=== PATIENT | female | born 1995 | race Caucasian/White ===

== ENCOUNTER 2017-05-02 19:15 | Emergency (ER) | payer OTHER ==
[2017-05-02 19:28] VITALS: RESP 18; TEMP 99
--- NOTE | 2017-05-02 19:42 | ED ---
Female Urogenital HPI - General Chief complaint: Vaginal Bleeding Stated complaint: preg/Vag bleeding Time Seen by Provider: 05/02/17 19:31 Source: patient, RN notes reviewed Mode of arrival: ambulatory Limitations: no limitations - History of Present Illness Initial comments: 21-year-old female presents emergency Department with chief complaint of vaginal bleeding in . Patient states started bleeding today. Patient states that she's had spotting and dark blood noted. Patient states she is very minimal cramping. Patient is A1. Patient states he is scheduled to see Dr. Correia. Patient states she went at [facility] earlier today in which they checked her urine and did a pelvic exam. She states that they told her cervix was closed and there is a few clots. Patient states bleeding is slowing down at this time. She believes her blood type is O+. She has never received from him with her primary care or of her child. Patient denies any nausea vomiting diarrhea constipation. - Related Data Home Medications Medication Instructions Recorded Confirmed Jui-Jfjq-Fmqax Acid 1 cap PO HS 05/02/17 05/02/17 [-U Capsule (formulary)] Allergies Allergy/AdvReac Type Severity Reaction Status Date / Time nickel Allergy Rash/Hives Verified 05/02/17 19:43 Review of Systems ROS Statement: Those systems with pertinent positive or pertinent negative responses have been documented in the HPI. ROS Other: All systems not noted in ROS Statement are negative. Past Medical History Additional Past Medical History / Comment(s): RT KIDNEY STONE. History of Any Multi-Drug Resistant Organisms: None Reported Past Surgical History: Section Additional Past Surgical History / Comment(s): Kidney stone removal Past Anesthesia/Blood Transfusion Reactions: No Reported Reaction Past Psychological History: No Psychological Hx Reported Smoking Status: Former smoker Past Alcohol Use History: None Reported Past Drug Use History: None Reported - Past Family History Mother Family Medical History: No Reported History General Exam Limitations: no limitations General appearance: alert, in no apparent distress Neck exam: Present: normal inspection. Absent: tenderness, meningismus, lymphadenopathy Respiratory exam: Present: normal lung sounds bilaterally. Absent: respiratory distress, wheezes, rales, rhonchi, stridor Cardiovascular Exam: Present: regular rate, normal rhythm, normal heart sounds. Absent: systolic murmur, diastolic murmur, rubs, gallop, clicks GI/Abdominal exam: Present: soft, normal bowel sounds. Absent: distended, tenderness, guarding, rebound, rigid Back exam: Absent: CVA tenderness (R), CVA tenderness (L) Neurological exam: Present: alert, oriented X3, CN II-XII intact Skin exam: Present: warm, dry, intact, normal color. Absent: rash Course Vital Signs 05/02/17 19:24 Temperature 99.0 F Pulse Rate 74 Respiratory 18 Rate Blood Pressure 120/66 O2 Sat by Pulse 99 Oximetry Medical Decision Making - Medical Decision Making 21-year-old female presented emergency department for vaginal bleeding and . Patient's hCG is only 11.8. Patient did take a present test 6 days ago. This most likely is a miscarriage. Patient will follow-up with her OB/ [facility]. Patient's ultrasound does not show any abnormalities. - Lab Data Result diagrams: 05/02/17 19:45 Lab Results 05/02/17 05/02/17 05/02/17 Range/Units 19:45 19:45 19:45 WBC 8.6 (3.8-10.6) k/uL RBC 4.81 (3.80-5.40) m/uL Hgb 15.2 (11.4-16.0) gm/dL Hct 42.3 (34.0-46.0) % MCV 87.8 (80.0-100.0) fL MCH 31.5 (25.0-35.0) pg MCHC 35.9 (31.0-37.0) g/dL RDW 12.7 (11.5-15.5) % Plt Count 206 (150-450) k/uL Neutrophils % 74 % Lymphocytes % 19 % Monocytes % 5 % Eosinophils % 1 % Basophils % 0 % Neutrophils # 6.4 (1.3-7.7) k/uL Lymphocytes # 1.6 (1.0-4.8) k/uL Monocytes # 0.4 (0-1.0) k/uL Eosinophils # 0.1 (0-0.7) k/uL Basophils # 0.0 (0-0.2) k/uL HCG, Quant 11.8 mIU/mL Urine Color Urine Appearance (Clear) Urine RBC (0-5) /hpf Urine WBC (0-5) /hpf Urine Bacteria (None) /hpf Urine Mucus (None) /hpf Blood Type O Positive Blood Type Recheck No 05/02/17 Range/Units 19:45 WBC (3.8-10.6) k/uL RBC (3.80-5.40) m/uL Hgb (11.4-16.0) gm/dL Hct (34.0-46.0) % MCV (80.0-100.0) fL MCH (25.0-35.0) pg MCHC (31.0-37.0) g/dL RDW (11.5-15.5) % Plt Count (150-450) k/uL Neutrophils % % Lymphocytes % % Monocytes % % Eosinophils % % Basophils % % Neutrophils # (1.3-7.7) k/uL Lymphocytes # (1.0-4.8) k/uL Monocytes # (0-1.0) k/uL Eosinophils # (0-0.7) k/uL Basophils # (0-0.2) k/uL HCG, Quant mIU/mL Urine Color Red Urine Appearance Bloody H (Clear) Urine RBC >182 H (0-5) /hpf Urine WBC >182 H (0-5) /hpf Urine Bacteria Occasional H (None) /hpf Urine Mucus Many H (None) /hpf Blood Type Blood Type Recheck Disposition Clinical Impression: Miscarriage Disposition: HOME SELF-CARE Condition: Stable Instructions: Miscarriage (ED) Additional Instructions: Please return to the Emergency Department if symptoms worsen or any other concerns. Referrals: None,Stated [Primary Care Provider] - 1-2 days Time of Disposition: 20:57
[2017-05-02 19:52] LABS: Basophils % (A) 0 %; CH 31.3; CHCM 35.8; Eosinophils # (A) 0.1 k/uL (0-0.7); Eosinophils % (A) 1 %; HCT 42.3 % (34.0-46.0); HDW 2.63; HGB 15.2 gm/dL (11.4-16.0); Luc # (Auto) 0.11; Luc % (Auto) 1; Lymphocytes # (A) 1.6 k/uL (1.0-4.8); Lymphocytes % (A) 19 %; MCH 31.5 pg (25.0-35.0); MCHC 35.9 g/dL (31.0-37.0); MCV 87.8 fL (80.0-100.0); Mean Platelet Volume 8.6; Monocytes # (A) 0.4 k/uL (0-1.0); Monocytes % (A) 5 %; Neutrophils # (A) 6.4 k/uL (1.3-7.7); Neutrophils % (A) 74 %; RBC 4.81 m/uL (3.80-5.40); RDW 12.7 % (11.5-15.5); WBC 8.6 k/uL (3.8-10.6); WBC (Perox) 7.93
[2017-05-02 20:07] LABS: Bacteria,Urine Occasional /hpf; Mucus,Urine Many /hpf; Particle Count 14180; RBC,Urine >182 /hpf (0-5); WBC,Urine >182 /hpf (0-5)
[2017-05-02 20:09] LABS: Appearance,Urine Bloody (Clear)
[2017-05-02 20:10] LABS: UA Billing (MACRO vs. MICRO) MICRO
[2017-05-02 21:17] VITALS: BP 105/59; PULSE 79
--- NOTE | 2017-05-02 21:36 | US ---
EXAMINATION TYPE: US OB <=14 wks transvag DATE OF EXAM: 05/02/2017 COMPARISON: NONE CLINICAL HISTORY: Pain, bleeding. EXAM PERFORMED: Transvaginal (TV) and Transabdominal (TA) EXAM MEASUREMENTS: GESTATIONAL AGE / DATING Physician Established: not yet established Dates by LMP: (6 weeks/0 days) EDC: 12/26/17 Dates by First Scan: 1st scan today Dates by Current Scan for: no dates by today's scan MATERNAL ANATOMY Uterus: 8.8 x 4.4 x 3.6cm Right Ovary: 3.0 x 1.6 x 1.5cm Left Ovary: 2.3 x 1.4 x 1.8cm Post CDS / Adnexa: wnl GESTATION / SURVEY IUP: No IUP seen at this time Date of LMP: 03/21/17 Beta HcG (if available): 11.8 IMPRESSION: Normal uterus and endometrium. No adnexal mass. No evidence of a gestational sac.
== END 2017-05-02 21:17 | disposition home or self-care (01) ==
LOC: EC 19:15
DX: O03.9 Complete or unspecified spontaneous abortion without complication (principal); Z3A.01 Less than 8 weeks gestation of pregnancy; Z91.048 Other nonmedicinal substance allergy status; Z79.899 Other long term (current) drug therapy; Z87.891 Personal history of nicotine dependence
CPT/HCPCS: 36415; 76801; 76817; 81001; 84702; 85025; 86900; 86901; 87086; 99284

== ENCOUNTER 2018-03-22 20:08 | Emergency (ER) | payer OTHER ==
[2018-03-22 20:26] VITALS: RESP 18
--- NOTE | 2018-03-22 21:39 | ED ---
Female Urogenital HPI - General Chief complaint: Vaginal Bleeding Stated complaint: vomiting/vaginal bleeding 8 1/2 wks preg Time Seen by Provider: 03/22/18 21:00 Source: patient Mode of arrival: ambulatory Limitations: no limitations - History of Present Illness Initial comments: 22 years old female presents with vaginal bleeding, spotting she believes she is 8-1/2 weeks last menstrual period was January 21, she has a history of previous miscarriages that she is concerned she is having another miscarriage. She is nauseous no dominant pain or lower back pain she has felt some cramps in her abdomen, last menstrual period was 01/21/2018 review of system is unremarkable otherwise - Related Data Home Medications Medication Instructions Recorded Confirmed [id number] Acid 1 cap PO HS 05/02/17 03/22/18 [-U Capsule (formulary)] Ondansetron [Zofran] 4 mg PO Q8HR PRN 03/22/18 03/22/18 Allergies Allergy/AdvReac Type Severity Reaction Status Date / Time nickel Allergy Rash/Hives Verified 03/22/18 21:09 Review of Systems ROS Statement: Those systems with pertinent positive or pertinent negative responses have been documented in the HPI. ROS Other: All systems not noted in ROS Statement are negative. Past Medical History Additional Past Medical History / Comment(s): RT KIDNEY STONE. History of Any Multi-Drug Resistant Organisms: None Reported Past Surgical History: Section Additional Past Surgical History / Comment(s): Kidney stone removal Past Anesthesia/Blood Transfusion Reactions: No Reported Reaction Past Psychological History: No Psychological Hx Reported Smoking Status: Former smoker Past Alcohol Use History: None Reported Past Drug Use History: None Reported - Past Family History Mother Family Medical History: No Reported History General Exam - General Exam Comments Initial Comments: General: The patient is awake and alert, in no distress, and does not appear acutely ill. Skin: Skin is warm and dry and no rashes or lesions are noted. Eye: Pupils are equal, round and reactive to light, extra-ocular movements are intact; there is normal conjunctiva bilaterally. Ears, nose, mouth and throat: There are moist mucous membranes and no oral lesions. Neck: The neck is supple, there is no tenderness or JVD. Cardiovascular: There is a regular rate and rhythm. No murmur, rub or gallop is appreciated. Respiratory: To auscultation bilateral, no wheezing no rhonchi no distress respiratory saha noticed Gastrointestinal: Soft, non-distended, non-tender abdomen without masses or organomegaly noted. There is no rebound or guarding present. Bowel sounds are unremarkable. Pelvic exam is unremarkable no bleeding noticed at all, no cervical motion tenderness noticed cervix is closed Back: There is no tenderness to palpation in the midline. There is no obvious deformity. Musculoskeletal: Normal ROM, no tenderness, There is no pedal edema. There is no calf tenderness or swelling. No cords were appreciated. Neurological: CN II-XII intact, Cranial nerves III through XII are intact. There are no obvious motor or sensory deficits. Coordination appears grossly intact. Speech is normal. Psychiatric: Cooperative, appropriate mood & affect, normal judgment. Limitations: no limitations Course Vital Signs 03/22/18 20:24 Temperature 98.5 F Pulse Rate 81 Respiratory 18 Rate Blood Pressure 110/78 O2 Sat by Pulse 98 Oximetry Issues disposition will be done as soon as I have beta-hCG quantitative and ultrasound of the pelvis report At report was available, it confirms intrauterine intrauterine live , she be discharged home to follow with her ob doctor Medical Decision Making - Lab Data Result diagrams: 03/22/18 21:15 03/22/18 21:15 Lab Results 03/22/18 03/22/18 03/22/18 Range/Units 21:15 21:15 21:15 WBC 8.0 (3.8-10.6) k/uL RBC 4.44 (3.80-5.40) m/uL Hgb 14.0 (11.4-16.0) gm/dL Hct 40.0 (34.0-46.0) % MCV 90.0 (80.0-100.0) fL MCH 31.6 (25.0-35.0) pg MCHC 35.1 (31.0-37.0) g/dL RDW 13.0 (11.5-15.5) % Plt Count 175 (150-450) k/uL Neutrophils % 77 % Lymphocytes % 17 % Monocytes % 4 % Eosinophils % 0 % Basophils % 0 % Neutrophils # 6.1 (1.3-7.7) k/uL Lymphocytes # 1.3 (1.0-4.8) k/uL Monocytes # 0.3 (0-1.0) k/uL Eosinophils # 0.0 (0-0.7) k/uL Basophils # 0.0 (0-0.2) k/uL Sodium 136 L (137-145) mmol/L Potassium 4.0 (3.5-5.1) mmol/L Chloride 99 (98-107) mmol/L Carbon Dioxide 24 (22-30) mmol/L Anion Gap 13 mmol/L BUN 9 (7-17) mg/dL Creatinine 0.49 L (0.52-1.04) mg/dL Est GFR (CKD-EPI)AfAm >90 (>60 ml/min/1.73 sqM) Est GFR (CKD-EPI)NonAf >90 (>60 ml/min/1.73 sqM) Glucose 77 (74-99) mg/dL Calcium 9.4 (8.4-10.2) mg/dL Total Bilirubin 0.4 (0.2-1.3) mg/dL AST 22 (14-36) U/L ALT 27 (9-52) U/L Alkaline Phosphatase 47 (38-126) U/L Total Protein 7.0 (6.3-8.2) g/dL Albumin 4.4 (3.5-5.0) g/dL Urine Color Yellow Urine Appearance Cloudy H (Clear) Urine pH 6.0 (5.0-8.0) Ur Specific [place] 1.020 (1.001-1.035) Urine Protein Trace H (Negative) Urine Glucose (UA) Negative (Negative) Urine Ketones Negative (Negative) Urine Blood Negative (Negative) Urine Nitrite Negative (Negative) Urine Bilirubin Negative (Negative) Urine Urobilinogen <2.0 (<2.0) mg/dL Ur Leukocyte Esterase Small H (Negative) Urine RBC 1 (0-5) /hpf Urine WBC 4 (0-5) /hpf Ur Squamous Epith Cells 31 H (0-4) /hpf Urine Bacteria Rare H (None) /hpf Urine Mucus Moderate H (None) /hpf Urine HCG, Qual (Not Detectd) 03/22/18 Range/Units 21:15 WBC (3.8-10.6) k/uL RBC (3.80-5.40) m/uL Hgb (11.4-16.0) gm/dL Hct (34.0-46.0) % MCV (80.0-100.0) fL MCH (25.0-35.0) pg MCHC (31.0-37.0) g/dL RDW (11.5-15.5) % Plt Count (150-450) k/uL Neutrophils % % Lymphocytes % % Monocytes % % Eosinophils % % Basophils % % Neutrophils # (1.3-7.7) k/uL Lymphocytes # (1.0-4.8) k/uL Monocytes # (0-1.0) k/uL Eosinophils # (0-0.7) k/uL Basophils # (0-0.2) k/uL Sodium (137-145) mmol/L Potassium (3.5-5.1) mmol/L Chloride (98-107) mmol/L Carbon Dioxide (22-30) mmol/L Anion Gap mmol/L BUN (7-17) mg/dL Creatinine (0.52-1.04) mg/dL Est GFR (CKD-EPI)AfAm (>60 ml/min/1.73 sqM) Est GFR (CKD-EPI)NonAf (>60 ml/min/1.73 sqM) Glucose (74-99) mg/dL Calcium (8.4-10.2) mg/dL Total Bilirubin (0.2-1.3) mg/dL AST (14-36) U/L ALT (9-52) U/L Alkaline Phosphatase (38-126) U/L Total Protein (6.3-8.2) g/dL Albumin (3.5-5.0) g/dL Urine Color Urine Appearance (Clear) Urine pH (5.0-8.0) Ur Specific [place] (1.001-1.035) Urine Protein (Negative) Urine Glucose (UA) (Negative) Urine Ketones (Negative) Urine Blood (Negative) Urine Nitrite (Negative) Urine Bilirubin (Negative) Urine Urobilinogen (<2.0) mg/dL Ur Leukocyte Esterase (Negative) Urine RBC (0-5) /hpf Urine WBC (0-5) /hpf Ur Squamous Epith Cells (0-4) /hpf Urine Bacteria (None) /hpf Urine Mucus (None) /hpf Urine HCG, Qual Detected (Not Detectd) Disposition Clinical Impression: Vaginal bleeding Disposition: HOME SELF-CARE Condition: Fair Instructions: First Trimester Vaginal Bleed (ED) Is patient prescribed a controlled substance at d/c from ED?: No When asked, does pt state using other controlled substances?: No If prescribed controlled substance>3 days was MAPS reviewed?: No If opioid is for acute pain is fill amount 7 days or less?: No If Rx opioid, was Start Talking consent form obtained?: No Referrals: None,Stated [Primary Care Provider] - 1-2 days Dunia Polanco, [REFERRING] - 1-2 days
[2018-03-22 21:42] LABS: Basophils % (A) 0 %; Eosinophils % (A) 0 %; Lymphocytes # (A) 1.3 k/uL (1.0-4.8); Lymphocytes % (A) 17 %; MCH 31.6 pg (25.0-35.0); MCHC 35.1 g/dL (31.0-37.0); Mean Platelet Volume 8.1; Monocytes # (A) 0.3 k/uL (0-1.0); Monocytes % (A) 4 %; Neutrophils # (A) 6.1 k/uL (1.3-7.7); Neutrophils % (A) 77 %; Platelet Count 175 k/uL (150-450); RBC 4.44 m/uL (3.80-5.40)
[2018-03-22 21:54] LABS: Appearance,Urine Cloudy (Clear); Bacteria,Urine Rare /hpf; Bilirubin,Urine Negative (Negative); Blood,Urine Negative (Negative); Color,Urine Yellow; Glucose,Urine (UA) Negative (Negative); Ketones,Urine Negative (Negative); Leukocyte Esterase,Urine Small (Negative); Mucus,Urine Moderate /hpf; Nitrite,Urine Negative (Negative); Protein,Urine Trace (Negative); RBC,Urine 1 /hpf (0-5); Squamous Epithelial Cell,Urine 31 /hpf (0-4); Urobilinogen,Urine <2.0 mg/dL (<2.0); WBC,Urine 4 /hpf (0-5)
[2018-03-22 21:56] LABS: ALT 27 U/L (9-52); AST 22 U/L (14-36); Albumin 4.4 g/dL (3.5-5.0); Alkaline Phosphatase 47 U/L (38-126); Anion Gap 13 mmol/L; Blood Urea Nitrogen 9 mg/dL (7-17); Calcium 9.4 mg/dL (8.4-10.2); Carbon Dioxide 24 mmol/L (22-30); Chloride 99 mmol/L (98-107); Glucose 77 mg/dL (74-99); Sodium 136 mmol/L (137-145); Total Bilirubin 0.4 mg/dL (0.2-1.3)
--- NOTE | 2018-03-23 00:03 | US ---
EXAMINATION TYPE: Transabdominal DATE OF EXAM: 01/25/18 COMPARISON: NONE CLINICAL HISTORY: pain. Spotting EXAM PERFORMED: Transabdominal (TA) EXAM MEASUREMENTS: GESTATIONAL AGE / DATING Physician Established: (8 weeks/4 days) EDC: 10/28/2018 Dates by LMP: (8 weeks/4 days) EDC: 10/28/2018 Dates by First Scan: No previous this is first scan Dates by Current Scan for: ( 8 weeks/0 days) EDC: 11/01/2018 MATERNAL ANATOMY Uterus: 10.1 x 6.7 x 8.3 cm Right Ovary: 3.7 x 1.9 x 1.8 cm Left Ovary: 2.6 x 1.0 x 2.8 cm Post CDS / Adnexa: wnl Presence of free fluid: no Presence of corpus luteal cyst: no Presence of subchorionic bleed: no GESTATION / SURVEY CRL: 1.6 cm (8 weeks/0 days) Yolk Sac (normal less than 6mm): 3 mm Heart Rate: 154 bpm Rhythm: Normal IUP: Viable IUP Beta HcG (if available): Not available at this time Viable IUP 8wks 0days JESSICA 11/01/2018 HR 154 BPM IMPRESSION: The ultrasound gestational age is 8 weeks. I see no complicating process.
[2018-03-23 00:12] VITALS: BP 110/55; PULSE 95; TEMP 98.4
== END 2018-03-23 00:17 | disposition home or self-care (01) ==
LOC: EC 20:08
DX: O20.9 Hemorrhage in early pregnancy, unspecified (principal); O99.89 Other specified diseases and conditions complicating pregnancy, childbirth and the puerperium; R11.0 Nausea; O26.891 Other specified pregnancy related conditions, first trimester; R10.9 Unspecified abdominal pain; Z3A.08 8 weeks gestation of pregnancy; Z87.891 Personal history of nicotine dependence; Z88.8 Allergy status to other drugs, medicaments and biological substances
CPT/HCPCS: 36415; 76801; 80053; 81001; 81025; 84702; 85025; 99284

== ENCOUNTER 2019-08-22 09:55 | Emergency (ER) | payer OTHER ==
[2019-08-22 10:05] VITALS: TEMP 98.2
[2019-08-22] MEDS ORDERED: CLINDAMYCIN 150 MG CAP PO STA (10:17)
[2019-08-22] MEDS ORDERED: ONDANSETRON 4 MG ODT STARTER PACK 2 TAB BTL PO STA (10:17)
[2019-08-22] MEDS ORDERED: ACET/COD 300 MG/30 MG STARTER PACK 6 TAB BTL PO STA (10:48)
--- NOTE | 2019-08-22 10:48 | ED ---
ENT HPI - General Chief complaint: Dental/Oral Stated complaint: Face swelling/dental pain Time Seen by Provider: 08/22/19 10:02 Source: patient Mode of arrival: ambulatory Limitations: no limitations - History of Present Illness Initial comments: 24yo female presenting to [facility] department for evaluation of right upper dental pain. Patient states she has had right upper dental pain for the past few days. She states she was started on amoxicillin by her primary care provider 2 days ago. Patient states she is taking the abx for 1.5 days. Patient states she has now noticed some slight swelling of the right upper aspect of her face. Patient denies any swelling below tongue of the neck as a compressive symptoms fever or flulike symptoms. Patient states she did have one OF vomiting since taking the antibiotics. Patient denies any chest pain shortness of breath. Patient has no other complaints upon arrival patient appears well no signs of acute distress. Patient is with dentist appointment scheduled for tomorrow for extraction of all of her upper teeth. - Related Data Home Medications Medication Instructions Recorded Confirmed Ondansetron [Zofran] 4 mg PO Q8HR PRN 03/22/18 08/22/19 Acetaminophen Tab [Tylenol Tab] 1,000 mg PO Q6HR PRN 08/22/19 08/22/19 Amoxicillin 875 mg PO Q12HR 08/22/19 08/22/19 Ibuprofen [Motrin Ib] 800 mg PO Q6H PRN 08/22/19 08/22/19 Previous Rx's Medication Instructions Recorded Clindamycin [Cleocin] 450 mg PO Q8H 7 Days #63 capsule 08/22/19 Allergies Allergy/AdvReac Type Severity Reaction Status Date / Time nickel Allergy Rash/Hives Verified 08/22/19 11:29 Review of Systems ROS Statement: Those systems with pertinent positive or pertinent negative responses have been documented in the HPI. ROS Other: All systems not noted in ROS Statement are negative. Past Medical History Additional Past Medical History / Comment(s): RT KIDNEY STONE. History of Any Multi-Drug Resistant Organisms: None Reported Past Surgical History: Section, Tubal Ligation Additional Past Surgical History / Comment(s): Kidney stone removal Past Anesthesia/Blood Transfusion Reactions: No Reported Reaction Past Psychological History: No Psychological Hx Reported Smoking Status: Former smoker Past Alcohol Use History: None Reported Past Drug Use History: None Reported - Past Family History Mother Family Medical History: No Reported History General Exam - General Exam Comments Initial Comments: General: The patient is awake and alert, in no distress, and does not appear acutely ill. Eye: Pupils are equal, round and reactive to light, extra-ocular movements are intact. No nystagmus. There is normal conjunctiva bilaterally. No signs of icterus. Ears, nose, mouth and throat: There are moist mucous membranes and no oral lesions. Poor dentition overall multiple carious and cracked dentition. Patient has tenderness to percussion of tooth #6, fluctuant areas of adjacent mucosa or evidence of abscess. No swelling tongue or below the angle of the mandible. Below tongue. Tripoding no drooling. Mild soft tissue swelling of the face just superior to the right upper maxilla. Neck: The neck is supple, there is no tenderness or JVD. Cardiovascular: There is a regular rate and rhythm. No murmur, rub or gallop is appreciated. Respiratory: Lungs are clear to auscultation, respirations are non-labored, breath sounds are equal. No wheezes, stridor, rales, or rhonchi. Musculoskeletal: Normal ROM, no tenderness. Strength 5/5. Sensation intact. Pulses equal bilaterally 2+. Neurological: A&O x 3. CN II-XII intact grossly, There are no obvious motor or sensory deficits. Coordination appears grossly intact. Speech is normal. Skin: Skin is warm and dry and no rashes or lesions are noted. Psychiatric: Cooperative, appropriate mood & affect, normal judgment. Limitations: no limitations Course Vital Signs 08/22/19 08/22/19 10:02 11:02 Temperature 98.2 F Pulse Rate 83 80 Respiratory 18 16 Rate Blood Pressure 107/66 110/70 O2 Sat by Pulse 97 98 Oximetry Medical Decision Making - Medical Decision Making 24 year female presenting for evaluation of dental pain. No evidence of abscess. Pain to percussion could be consistent with a periapical abscess. Patient be started on clindamycin as she is currently on amoxicillin. HCG negative. Patient has follow up with dentist tomorrow. No signs of Gibran's angina or systemic spread of infection. Patient is afebrile well-appearing on arrival. Return parameters were discussed the importance of follow-up patient verbalized understanding of his discharge appearing well after discussing the case with my attending provider Dr. Bui prior to discharge - Lab Data Lab Results 08/22/19 Range/Units 10:23 Urine HCG, Qual Not Detected (Not Detectd) Disposition Clinical Impression: Pain, dental Disposition: HOME SELF-CARE Condition: Good Instructions (If sedation given, give patient instructions): Dental Abscess (ED) Additional Instructions: Please use medication as discussed. Please follow-up with your dentist tomorrow as scheduled, if swelling below the tongue, fever, increasing facial swelling or swelling of throat/sensation of--occur please report immediately to the ER. Please return to emergency room if the symptoms increase or worsen or for any other concerns. Prescriptions: Clindamycin [Cleocin] 450 mg PO Q8H 7 Days #63 capsule Is patient prescribed a controlled substance at d/c from ED?: No Referrals: Vijay Recinos MD [Primary Care Provider] - 1-2 days Time of Disposition: 10:47
[2019-08-22 11:03] VITALS: BP 110/70; PULSE 80; RESP 16
== END 2019-08-22 11:00 | disposition home or self-care (01) ==
LOC: EC 09:55
DX: K02.9 Dental caries, unspecified (principal); K03.81 Cracked tooth; R22.0 Localized swelling, mass and lump, head; R11.10 Vomiting, unspecified; Z87.891 Personal history of nicotine dependence; Z91.048 Other nonmedicinal substance allergy status
CPT/HCPCS: 81025; 99284; S0119